=== PATIENT | female | born 1980 | race African-American/Black ===

== ENCOUNTER 2016-04-11 23:37 | Emergency (ER) | payer MEDICARE, OTHER ==
[2016-04-11 22:57] LABS: BASOPHIL# 0.1 X10e3 (0-0.3); BASOPHIL% 0.5 % (0-2.5); HEMATOCRIT 39.2 % (35.0-45.0); HEMOGLOBIN 12.8 gm/dL (12.0-16.0); LYMPHOCYTE# 2.2 X10e3 (1.0-3.5); LYMPHOCYTE% 19.9 % (17.0-45.0); MEAN CELL VOLUME 84.6 FL (83-96); MEAN CORPUSCULAR HEMOGLOBIN 27.6 PG (28-34); MEAN CORPUSCULAR HGB CONC 32.7 g/dL (30-36); MEAN PLATELET VOLUME 10.2 FL (6.5-11.5); MONOCYTE# 0.7 X10e3 (0-1.0); NEUTROPHIL# 8.2 X10e3 (1.5-7.1); NEUTROPHIL% 73.6 % (40-75); PLATELET COUNT 197 X10e3 (140-420); RED BLOOD COUNT 4.63 X10e (3.90-5.30); RED CELL DISTRIBUTION WIDTH 15.1 % (11.0-15.5); WHITE BLOOD COUNT 11.2 X10e3 (4.0-10.5)
[2016-04-11 22:59] LABS: DIFF IND NO
[2016-04-11 23:22] LABS: ALBUMIN SERUM 4.9 g/dL (3.5-5.0); ALKALINE PHOSPHATASE 68 U/L (32-92); ALT (SGPT) 26 U/L (10-40); AST (SGOT) 45 U/L (10-42); BILIRUBIN,TOTAL 1.1 mg/dL (0.2-2.0); BLOOD UREA NITROGEN 19 mg/dL (9-23); BUN/CREATININE RATIO 23.75; CALCIUM SERUM 9.4 mg/dL (8.4-10.2); CARBON DIOXIDE 20 mmol/L (22-31); CHLORIDE 106 mmol/L (100-111); CREATININE SERUM 0.8 mg/dL (0.6-1.4); GLOM FILT RATE Estimated ABOVE60 mL/min (>60); GLUCOSE FASTING 129 mg/dL (70-110); POTASSIUM 3.8 mmol/L (3.5-5.1); PROTEIN TOTAL SERUM 8.8 g/dL (6.0-8.3); SODIUM 142 mmol/L (135-145)
[2016-04-11 23:30] LABS: ALCOHOL BLOOD <5 mg/dL (0)
[~2016-04-11 23:37] MED LIST: ABILIFY PO; AMOXICILLIN PO; FIORICET 50-321 EACH PO
== END 2016-04-12 02:45 | disposition home or self-care (01) ==
LOC: CED 23:37
PROVIDERS: Emergency Medicine
DX: R41.82 Altered mental status, unspecified (principal); M25.579 Pain in unspecified ankle and joints of unspecified foot; F31.9 Bipolar disorder, unspecified; F17.200 Nicotine dependence, unspecified, uncomplicated; Z79.899 Other long term (current) drug therapy
CPT/HCPCS: 80053; 84703; 85025; 96374; 99283; G0480; J2060

== ENCOUNTER 2016-06-30 11:33 | Emergency (ER) | payer MEDICARE, OTHER | END 2016-06-30 14:00 | disposition home or self-care (01) | LOC: CED 11:33 → CFTX 11:33 | DX: S90.822A Blister (nonthermal), left foot, initial encounter (principal); S90.821A Blister (nonthermal), right foot, initial encounter; F31.9 Bipolar disorder, unspecified; F17.200 Nicotine dependence, unspecified, uncomplicated; F41.9 Anxiety disorder, unspecified; X58.XXXA Exposure to other specified factors, initial encounter; Y92.9 Unspecified place or not applicable | CPT/HCPCS: 99282 ==

== ENCOUNTER 2016-09-19 14:02 | Emergency (ER) | payer MEDICARE, OTHER ==
[~2016-09-19] VITALS: Ht 170.2 cm; Wt 63.5 kg
--- NOTE | ~2016-09-19 | CR21 ---
[facility] A Service of [facility] & [facility] RADIOLOGY TEXT RESULTS PATIENT: RJ HOFFMAN LOCATION: CFTX : 82 UNIT #: [id number] AGE: [address]: [place] DERAS SEX: F ORDER DR: [id number] [facility] [address] [place], [place] [address] [id number] MR#: [id number] Acc #: [id number] NAME: RJ HOFFMAN : 1980 SEX: F STUDY DATE/TIME: 09/19/2016 15:27 UNIT: [facility] ROOM: STUDY DESCRIPTION: CR Ankle Min 3 Views Rt Attending Physician: [place] Deras A.P.R.N. Ordering Physician: [place] Deras A.P.R.N. Primary Care Physician: Primary Care Physician No MEDICAL IMAGING REPORT This report is preliminary unless electronic signature is present EXAM Ankle minimum 3 views right. HISTORY Fell today and twisted ankle while running, now has right ankle pain, swelling laterally. COMMENT Three views of the right ankle are reviewed. No comparison. There is soft tissue swelling laterally and anteriorly. Ankle mortise is anatomic. No definite acute fracture. No radiopaque foreign body. IMPRESSION Soft tissue swelling laterally and anteriorly but no acute fracture or dislocation right ankle. Dictated by... Kaitlynn Gibbons M.D. THIS IS AN ELECTRONICALLY VERIFIED REPORT Kaitlynn Gibbons M.D. at 09/20/2016 2:09 PM [facility]/psc TD: 09/20/2016 00:26 JOB #: [id number] MEDICAL IMAGING REPORT Page 1 of 1 COPY
== END 2016-09-19 16:47 | disposition home or self-care (01) ==
LOC: CED 14:02 → CFTX 14:02
DX: S93.401A Sprain of unspecified ligament of right ankle, initial encounter (principal); X50.1XXA Overexertion from prolonged static or awkward postures, initial encounter; Y92.9 Unspecified place or not applicable
CPT/HCPCS: 29405; 73610; 96372; 99284; J1885